=== PATIENT | female | born 1965 | race Hispanic/Latino ===

== ENCOUNTER 2021-03-11 00:46 | Emergency (ER) | payer SELFPAY ==
[~2021-03-11] VITALS: Ht 157.5 cm; Wt 87.1 kg
[2021-03-11] MEDS ORDERED: DIAZEPAM 5 MG TAB PO ONE (01:15)
[2021-03-11] MEDS ORDERED: DIAZEPAM 5 MG TAB ONE (01:17)
[2021-03-11] MEDS ORDERED: VALIUM5 MG PO (02:05)
== END 2021-03-11 02:30 | disposition home or self-care (01) ==
LOC: ER 00:53
DX: R00.2 Palpitations (principal); F41.9 Anxiety disorder, unspecified
CPT/HCPCS: 93005; 99282

== ENCOUNTER 2021-03-29 16:29 | Emergency (ER) | payer BC ==
[~2021-03-29] VITALS: Ht 157.5 cm; Wt 87.1 kg
[~2021-03-29 16:29] MED LIST: VALIUM5 MG PO
[2021-03-29] MEDS ORDERED: SODIUM CHLORIDE 0.9% 1000ML 1,000 ML IV STA (17:25)
[2021-03-29 17:50] LABS: BASOPHILS % 0.8 % (0.0-1.0); EOSINOPHILS # (AUTO) 0.1 (0.0-0.4); EOSINOPHILS % 2.7 % (0.0-6.0); HEMATOCRIT 41.1 % (34.2-44.1); HEMOGLOBIN 13.1 g/dL (12.0-16.0); LYMPHOCYTES # (AUTO) 1.8 (1.0-3.2); LYMPHOCYTES % 38.3 % (18.0-39.1); MEAN CORPUSCULAR HEMOGLOBIN 25.4 pg (28-32); MEAN CORPUSCULAR HGB CONC 31.9 g/dL (31-35); MEAN CORPUSCULAR VOLUME 79.8 fL (81-99); MONOCYTES # (AUTO) 0.5 (0.2-0.8); MONOCYTES % 10.6 % (4.4-11.3); NEUTROPHILS # (AUTO) 2.2 (2.1-6.9); NEUTROPHILS % 47.2 % (38.7-80.0); PLATELET COUNT 207 x10e3/uL (140-360); RED BLOOD COUNT 5.15 x10e6/uL (3.6-5.1); RED CELL DISTRIBUTION WIDTH 13.9 % (11.7-14.4)
[2021-03-29 18:06] LABS: ALANINE AMINOTRANSFERASE 25 IU/L (0-55); ALBUMIN 4.2 g/dL (3.5-5.0); ALBUMIN/GLOBULIN RATIO 1.3 (0.8-2.0); ALKALINE PHOSPHATASE 61 IU/L (40-150); ANION GAP 15.6 mmol/L (8-16); BLOOD UREA NITROGEN 17 mg/dL (7-26); BUN/CREATININE RATIO 22 (6-25); CALCIUM 9.5 mg/dL (8.4-10.2); CARBON DIOXIDE 24 mmol/L (22-29); CHLORIDE 106 mmol/L (98-107); CREATINE KINASE 79 IU/L (29-168); CREATININE, SERUM 0.78 mg/dL (0.57-1.11); EST GLOMERULAR FILTRATION RATE > 60 ML/MIN (60-); GLUCOSE 83 mg/dL (74-118); POTASSIUM 3.6 mmol/L (3.5-5.1); SODIUM 142 mmol/L (136-145)
[2021-03-29 19:46] VITALS: BP 170/74
== END 2021-03-29 19:50 | disposition home or self-care (01) ==
LOC: ER 17:50
DX: R07.89 Other chest pain (principal); I16.0 Hypertensive urgency; R51.9 Headache, unspecified; R94.31 Abnormal electrocardiogram [ECG] [EKG]
CPT/HCPCS: 36415; 70450; 71045; 80053; 82550; 82553; 83880; 84484; 85025; 93005; 99284; J7030

== ENCOUNTER 2021-04-10 16:24 | Emergency (ER) | payer BC ==
[~2021-04-10] VITALS: Ht 157.5 cm; Wt 87.1 kg
[2021-04-10] MEDS ORDERED: ASPIRIN 81 MG CHEW TAB PO ONE (16:45)
[2021-04-10 16:56] LABS: BASOPHILS # (AUTO) 0.1 (0.0-0.1); BASOPHILS % 0.9 % (0.0-1.0); EOSINOPHILS # (AUTO) 0.1 (0.0-0.4); EOSINOPHILS % 1.8 % (0.0-6.0); HEMATOCRIT 43.9 % (34.2-44.1); HEMOGLOBIN 14.2 g/dL (12.0-16.0); LYMPHOCYTES # (AUTO) 2.6 (1.0-3.2); LYMPHOCYTES % 45.3 % (18.0-39.1); MEAN CORPUSCULAR HEMOGLOBIN 25.3 pg (28-32); MEAN CORPUSCULAR HGB CONC 32.3 g/dL (31-35); MEAN CORPUSCULAR VOLUME 78.3 fL (81-99); MONOCYTES # (AUTO) 0.5 (0.2-0.8); MONOCYTES % 8.2 % (4.4-11.3); NEUTROPHILS # (AUTO) 2.5 (2.1-6.9); NEUTROPHILS % 43.6 % (38.7-80.0); PLATELET COUNT 211 x10e3/uL (140-360); RED BLOOD COUNT 5.61 x10e6/uL (3.6-5.1); RED CELL DISTRIBUTION WIDTH 13.9 % (11.7-14.4)
[2021-04-10] MEDS ORDERED: SODIUM CHLORIDE 0.9% 50ML 50 ML ONE (17:07)
[2021-04-10] MEDS ORDERED: IOPAMIDOL 370 MG/ML 200 ML INFUS..BTL INJ ONE (17:08)
[2021-04-10 17:15] LABS: ALBUMIN 4.3 g/dL (3.5-5.0); ALBUMIN/GLOBULIN RATIO 1.2 (0.8-2.0); ANION GAP 19.7 mmol/L (8-16); CREATININE, SERUM 1.1 mg/dL (0.57-1.11)
[2021-04-10 17:20] LABS: POTASSIUM 2.7 mmol/L (3.5-5.1)
[2021-04-10 17:22] LABS: CREATINE KINASE MB 1.6 ng/mL (0-5.0)
[2021-04-10] MEDS ORDERED: POTASSIUM CHLORIDE 20 MEQ TAB CR PO NR (19:45)
[2021-04-10 22:09] VITALS: BP 129/79
== END 2021-04-10 20:30 | disposition home or self-care (01) ==
LOC: ER 16:57
DX: R06.02 Shortness of breath (principal); R07.9 Chest pain, unspecified; E87.6 Hypokalemia; R53.81 Other malaise; Z20.822 Contact with and (suspected) exposure to COVID-19; R94.31 Abnormal electrocardiogram [ECG] [EKG]
CPT/HCPCS: 36415; 71260; 80053; 82550; 82553; 83880; 84484; 85025; 93005; 99284; Q9967; U0002

== ENCOUNTER 2021-04-19 19:02 | Emergency (ER) | payer BC, OTHER ==
[~2021-04-19] VITALS: Ht 157.5 cm; Wt 81.6 kg
[2021-04-19] MEDS ORDERED: ASPIRIN 81 MG CHEW TAB PO ONE (19:30)
[2021-04-19 19:33] LABS: BASOPHILS # (AUTO) 0.1 (0.0-0.1); EOSINOPHILS # (AUTO) 0.1 (0.0-0.4); HEMATOCRIT 43.3 % (34.2-44.1); LYMPHOCYTES # (AUTO) 2.3 (1.0-3.2); LYMPHOCYTES % 46.9 % (18.0-39.1); MEAN CORPUSCULAR HGB CONC 32.3 g/dL (31-35); MEAN CORPUSCULAR VOLUME 77.5 fL (81-99); MONOCYTES # (AUTO) 0.5 (0.2-0.8); MONOCYTES % 10.1 % (4.4-11.3); NEUTROPHILS % 39.8 % (38.7-80.0); PLATELET COUNT 220 x10e3/uL (140-360); RED BLOOD COUNT 5.59 x10e6/uL (3.6-5.1); RED CELL DISTRIBUTION WIDTH 13.5 % (11.7-14.4)
[2021-04-19 19:47] LABS: CLARITY,URINE SL CLOUDY (CLEAR); COLOR,URINE STRAW (YELLOW); LEUKOCYTE ESTERASE ,URINE LARGE (NEGATIVE); NITRITE,URINE NEGATIVE (NEGATIVE); PROTEIN,URINE DIPSTICK NEGATIVE (NEGATIVE)
[2021-04-19 19:48] LABS: KETONES,URINE NEGATIVE (NEGATIVE); URINE UROBILINOGEN 0.2 mg/dL (0.2 - 1)
[2021-04-19 19:52] LABS: BACTERIA,URINE FEW /HPF; EPITHELIAL CELLS,URINE FEW /LPF; RBC,URINE 0-5 /HPF (0-5); WBC,URINE (MAN) >50 /HPF (0-5)
[2021-04-19 19:53] LABS: ALBUMIN 4.2 g/dL (3.5-5.0); ALBUMIN/GLOBULIN RATIO 1.2 (0.8-2.0); ANION GAP 12.9 mmol/L (8-16); CALCIUM 10.2 mg/dL (8.4-10.2); CREATININE, SERUM 1.01 mg/dL (0.57-1.11)
[2021-04-19 19:56] LABS: POTASSIUM 2.9 mmol/L (3.5-5.1)
[2021-04-19] MEDS ORDERED: POTASSIUM CHLORIDE 20 MEQ TAB CR PO STA (19:56)
[2021-04-19 20:02] LABS: CREATINE KINASE MB 1.5 ng/mL (0-5.0)
[2021-04-19 22:04] LABS: CREATINE KINASE MB 1.4 ng/mL (0-5.0)
[2021-04-19 23:01] VITALS: BP 121/81
== END 2021-04-19 23:03 | disposition home or self-care (01) ==
LOC: ER 19:54
DX: R07.9 Chest pain, unspecified (principal); R20.0 Anesthesia of skin; E87.6 Hypokalemia; R53.81 Other malaise; R94.31 Abnormal electrocardiogram [ECG] [EKG]; I10 Essential (primary) hypertension
CPT/HCPCS: 36415; 71045; 80053; 81001; 82550; 82553; 83880; 84484; 85025; 93005; 99284

== ENCOUNTER 2021-05-04 08:39 | Emergency (ER) | payer OTHER ==
[~2021-05-04] VITALS: Ht 157.5 cm; Wt 81.6 kg
[2021-05-04] MEDS ORDERED: HYDROXYZIN10 MG/5 ML PO (09:53)
[2021-05-04] MEDS ORDERED: HYDROXYZINE HCL 25 MG TAB PO SCH (21:00)
== END 2021-05-04 10:04 | disposition home or self-care (01) ==
LOC: ER 08:50
DX: R00.2 Palpitations (principal); R06.02 Shortness of breath; I10 Essential (primary) hypertension; Z86.16 Personal history of COVID-19
CPT/HCPCS: 93005; 99282; J3410